=== PATIENT | male | born 1940 | race Caucasian/White ===

== ENCOUNTER 2022-04-01 07:25 | Day surgery (SDC) | payer MEDICARE, OTHER ==
[2022-04-01] MEDS ORDERED: Sodium Bicarbonate 2.5 MEQ/5 ML VIAL ONE (08:00)
[2022-04-01] MEDS ORDERED: Lidocaine 1% PF 5 ML VIAL ONE (08:00)
[2022-04-01 08:30] VITALS: BP 163/81; TEMP 97.9
[2022-04-01] MEDS ORDERED: Iopamidol-M 300 61% 15 ML VIAL ONE (10:10)
== END 2022-04-01 10:40 | disposition home or self-care (01) ==
LOC: CSHRAD 07:25 → EDSTATUS 08:00 → CSHRAD 10:40
PROVIDERS: ATTEND Neurological Surgery
DX: M50.323 Other cervical disc degeneration at C6-C7 level (principal); M47.812 Spondylosis without myelopathy or radiculopathy, cervical region; R20.2 Paresthesia of skin; R25.9 Unspecified abnormal involuntary movements; E11.9 Type 2 diabetes mellitus without complications; Z86.73 Personal history of transient ischemic attack (TIA), and cerebral infarction without residual deficits; Z87.891 Personal history of nicotine dependence; Z79.84 Long term (current) use of oral hypoglycemic drugs; Z79.01 Long term (current) use of anticoagulants; Z79.899 Other long term (current) drug therapy; Z79.82 Long term (current) use of aspirin
CPT/HCPCS: 62302; 72125; Q9967